=== PATIENT | male | born 1950 | race Caucasian/White ===

== ENCOUNTER → 2017-09-16 | Outpatient (CLI) | payer OTHER ==
[~2017-09-16] MED LIST: FLOMAX0.4 MG PO; NORCO 5/3251 TABLET PO; TAMSULOSIN HCL0.4 MG PO; ZOFRAN ODT8 MG PO
== END | disposition home or self-care (01) ==
LOC: NUC 09:49
DX: M19.011 Primary osteoarthritis, right shoulder (principal); M17.0 Bilateral primary osteoarthritis of knee; R97.20 Elevated prostate specific antigen [PSA]
CPT/HCPCS: 78306; A9503